=== PATIENT | female | born 1960 | race Caucasian/White ===

== ENCOUNTER 2022-04-20 18:44 | Emergency (ER) | payer MEDICARE ==
[~2022-04-20] VITALS: Ht 165.1 cm; Wt 79.5 kg
[2022-04-20] MEDS ORDERED: VOLTAREN75 MG PO (21:16)
[2022-04-20 21:23] VITALS: BP 115/70
== END 2022-04-20 21:28 | disposition home or self-care (01) ==
LOC: ED 18:44
DX: S70.02XA Contusion of left hip, initial encounter (principal); S76.012A Strain of muscle, fascia and tendon of left hip, initial encounter; W01.0XXA Fall on same level from slipping, tripping and stumbling without subsequent striking against object, initial encounter; Y92.029 Unspecified place in mobile home as the place of occurrence of the external cause